=== PATIENT | male | born 1990 | race Two or more races ===

== ENCOUNTER 2016-12-19 21:36 | Emergency (ER) | payer SELFPAY ==
[2016-12-19 21:50] VITALS: BP 114/68
--- NOTE | 2016-12-19 21:51 | PHYS DOC ---
Past Medical History Past Medical History: No Pertinent History Past Surgical History: No Surgical History Alcohol Use: None Drug Use: None Adult General Chief Complaint Chief Complaint: SKIN RASH/ABSCESS HPI HPI Patient is a 26 year old male who presents with sores in his bilateral groins. He states he has had multiple tiny abscesses in his armpits and his groins and over the last several months she's been trying to prevent a with hydrocortisone and baths. He states over the last week she's been noticing more swelling in his right groin. He denies any fevers chills nausea vomiting. He is unsure when his last tetanus shot was. He denies being on any medications or any allergies to medicines. Review of Systems Review of Systems Constitutional: Denies fever or chills [] Eyes: Denies change in visual acuity, redness, or eye pain [] HENT: Denies nasal congestion or sore throat [] Respiratory: Denies cough or shortness of breath [] Cardiovascular: No additional information not addressed in HPI [] GI: Denies abdominal pain, nausea, vomiting, bloody stools or diarrhea [] : Denies dysuria or hematuria [] Musculoskeletal: Denies back pain or joint pain [] Integument: Denies rash or skin lesions [] Neurologic: Denies headache, focal weakness or sensory changes [] Endocrine: Denies polyuria or polydipsia [] Current Medications Current Medications Current Medications Medications (Trade) Dose Ordered Sig/Amy Start Time Stop Time Status Last Admin Dose Admin Clindamycin HCl (Cleocin) 300 mg 1X ONCE 12/19/16 23:30 12/19/16 23:31 DC Diphtheria/ Tetanus/Acell Pertussis (Boostrix) 0.5 ml ONCE ONCE 12/19/16 22:30 12/19/16 22:31 DC 12/19/16 22:30 0.5 ML Lidocaine/Sodium Bicarbonate (Buffered Lidocaine 1%) 20 ml 1X ONCE 12/19/16 22:30 12/19/16 22:31 DC Allergies Allergies Allergies Coded Allergies Type Severity Reaction Last Updated Verified No Known Drug Allergies 05/27/14 No Physical Exam Physical Exam Constitutional: Well developed, well nourished, no acute distress, non-toxic appearance. [] HENT: Normocephalic, atraumatic, bilateral external ears normal, oropharynx moist, no oral exudates, nose normal. [] Eyes: PERRLA, EOMI, conjunctiva normal, no discharge. [] Neck: Normal range of motion, no tenderness, supple, no stridor. [] Cardiovascular:Heart rate regular rhythm, no murmur [] Lungs & Thorax: Bilateral breath sounds clear to auscultation [] Abdomen: Bowel sounds normal, soft, no tenderness, no masses, no pulsatile masses. [] Skin: Warm, dry, no erythema, no rash. [] Back: No tenderness, no CVA tenderness. [] Extremities: No tenderness, no cyanosis, no clubbing, ROM intact, no edema. [] Neurologic: Alert and oriented X 3, normal motor function, normal sensory function, no focal deficits noted. [] Psychologic: Affect normal, judgement normal, mood normal. [] Current Patient Data Vital Signs Vital Signs Date Time Temp Pulse Resp B/P (MAP) Pulse Ox O2 Delivery O2 Flow Rate FiO2 12/19/16 21:50 98.2 75 18 96 Room Air 98.2 EKG EKG [] Radiology/Procedures Radiology/Procedures [] Impressions: Hidradenitis Course & Med Decision Making Course & Med Decision Making Pertinent Labs and Imaging studies reviewed. (See chart for details) He has wounds on bilateral thighs 3 on the left that was able to be opened and a small amount of purulent discharge expressed and one on his left medial thigh. There is nothing acute needed to be packed this time. There was not enough for wound culture. He is being discharged with clindamycin for 10 days and follow-up with Dr. Mesa. Return precautions given for fevers, worsening pain or other concerns. He is agreeable to the plan and being discharged in stable condition. Dragon Disclaimer Dragon Disclaimer This electronic medical record was generated, in whole or in part, using a voice recognition dictation system. Incision and Drainage Indication: Mutliple small abscess Procedure: The patient was positioned appropriately. Local anesthesia was lidocaine. An incision was then made over the apex of the lesion and small amount of purulent material was expressed. The patients tetanus status updated as needed. The patient tolerated the procedure well. Complications: none. Departure Departure Impression: Primary Impression: Hydradenitis Disposition: 01 HOME, SELF-CARE Condition: STABLE Referrals: NO PCP (PCP) STEPAN MESA MD Patient Instructions: Abscess Additional Instructions: You were seen today for your wounds in your groins. Four of these was opened and drained. Your being discharged home on antibiotics and pain medicine. Please don't drive your car while you're on these pain meds as it can impair judgment and make you sleepy. You will need to follow-up with one of the surgeons. Return ER if you have severe pain, fevers or other concerns. You will need take anabiotic for the next 10 days. You can use Hibasclens as a soap and wash herself every other day for a week to help clear your body of bacteria to help prevent these infections. Scripts Hydrocodone/Apap 5-325 (NORCO 5-325 TABLET) 1 Each Tablet 1-2 TAB PO Q4-6HRS Y for PAIN, #20 TAB Prov: KEYSHAWN TOBIAS MD 12/20/16 Clindamycin Hcl (CLINDAMYCIN HCL) 300 Mg Capsule 1 CAP PO TID, #30 CAP Prov: KEYSHAWN TOBIAS MD 12/20/16 KEYSHAWN TOBIAS MD Dec 19, 2016 21:51
[2016-12-19] MEDS ORDERED: LIDOCAINE 1% / SOD BICARB 8.4% 20 ML VIAL. IJ ONE (22:30)
[2016-12-19] MEDS ORDERED: DIPHTH,PERTUSS(ACELL),TET TOX 0.5 ML DISP.SYRIN. VAX IM ONE (22:30)
[2016-12-19] MEDS ORDERED: CLINDAMYCIN HCL 150 MG CAPSULE. PO ONE (23:30)
[2016-12-20] MEDS ORDERED: CLIN300C8 PO (00:08)
[2016-12-20] MEDS ORDERED: HYDR-971 PO (00:08)
== END 2016-12-20 00:22 | disposition home or self-care (01) ==
LOC: ER 21:36
DX: L73.2 Hidradenitis suppurativa (principal)
CPT/HCPCS: 10060; 90471; 90715; 99283-25

== ENCOUNTER 2019-08-20 22:09 | Emergency (ER) | payer OTHER ==
[~2019-08-20 22:09] MED LIST: CLIN300C8 PO; HYDR-3164 PO
== END 2019-08-20 22:40 | disposition left against medical advice (07) ==
LOC: ER 22:09
DX: R06.02 Shortness of breath (principal); Z53.21 Procedure and treatment not carried out due to patient leaving prior to being seen by health care provider